=== PATIENT | female | born 1995 | race Caucasian/White ===

== ENCOUNTER 2017-03-15 18:16 | Emergency (ER) | payer OTHER ==
[~2017-03-15] VITALS: Ht 170.2 cm; Wt 100.2 kg
[~2017-03-15 18:16] MED LIST: DOCU-131 PO; FERR325T18 PO; HYDR-3240 PO; IBUP-1222 PO; MELA5TAB19 PO; PREN1TAB60 PO
[2017-03-15 18:17] VITALS: BP 155/99
[2017-03-15] MEDS ORDERED: PROPARACAINE OPHTH 0.5%, 15ML EACHEYE ONE (18:30)
[2017-03-15] MEDS ORDERED: FLUORESCEIN OPHTHALMIC 1 MG STRIP EACHEYE ONE (18:30)
[2017-03-15] MEDS ORDERED: FLUORESCEIN OPHTHALMIC 1 MG STRIP ONE (19:22)
[2017-03-15] MEDS ORDERED: PROPARACAINE OPHTH 0.5%, 15ML ONE (19:22)
== END 2017-03-15 20:51 | disposition home or self-care (01) ==
LOC: ED 19:24
DX: H57.11 Ocular pain, right eye (principal)
CPT/HCPCS: 99283

== ENCOUNTER → 2019-08-27 | Outpatient (CLI) | payer OTHER ==
[~2019-08-27] MED LIST changes: +MELA5TAB14 PO; -MELA5TAB19 PO
== END | disposition home or self-care (01) ==
LOC: LAB 03:15
PROVIDERS: ATTEND Family Medicine
DX: Z11.59 Encounter for screening for other viral diseases (principal)
CPT/HCPCS: 36415; 86787

== ENCOUNTER 2020-12-24 17:02 | Emergency (ER) | payer OTHER ==
[~2020-12-24] VITALS: Ht 170.2 cm; Wt 99.2 kg
[~2020-12-24 17:02] MED LIST changes: +HYDR-2214 PO; -HYDR-3240 PO
[2020-12-24 18:59] VITALS: BP 128/83
--- NOTE | 2020-12-24 18:59 | NUR ---
FIRST ENCOUNTER WITH PATIENT. PATIENT SITTING IN STRETCHER STATES SHE FEELS "HOT." TEMP 102.7. DENIES ANY NEEDS AT THIS TIME. WAITING ON XRAY RESULTS. BED IN LOW POSITION. CALL WALKER IN REACH. VSS. WILL CONTINUE TO MONITOR.
[2020-12-24] MEDS ORDERED: CEFTRIAXONE 1,000 MG IM ONE (19:00)
[2020-12-24] MEDS ORDERED: CEFAZOLIN 1,000 MG ONE (19:06)
[2020-12-24] MEDS ORDERED: ACETAMINOPHEN 500 MG TABLET ONE (19:06)
[2020-12-24] MEDS ORDERED: ACETAMINOPHEN 500 MG TABLET PO ONE (19:30)
--- NOTE | 2020-12-24 19:39 | NUR ---
Patient given discharge instructions and they have confirmed that they understand the instructions. Patient ambulatory with steady gait. NAD, all questions answered appropriately, denies additional needs at this time. No personal belongings left in room after discharge.
== END 2020-12-24 19:41 | disposition home or self-care (01) ==
LOC: ED 17:32
DX: U07.1 COVID-19 (principal); J12.82 Pneumonia due to coronavirus disease 2019
CPT/HCPCS: 71045; 96372; 99284; J0696; U0003; U0005

== ENCOUNTER 2020-12-27 13:23 | Inpatient (IN) | payer OTHER ==
[~2020-12-27] VITALS: Ht 170.2 cm; Wt 96.4 kg
--- NOTE | 2020-12-27 14:30 | NUR ---
TRANSPORT COORDINATOR: PT TO ROOM FROM [facility]
--- NOTE | 2020-12-27 14:49 | NUR ---
PT CAME IN CO COUGH, WEAKNESS, LOSS OF APPETITE AND FATIGUE. PT WAS SEEN IN ER ON SATURDAY AND DX WITH COVID AND SHE WAS SENT HOME WITH DOXYCYCLINE. PT REPORTS SHE HAS BEEN FEELING WORSE AND HER HOME PULSE OX WAS READING "85%". PT ROOM AIR SAT AFTER WALKING TO ROOM WAS 88%. PT PLACED ON 2 LITERS VIA NC. CONNECTED TO MONITORS.
--- NOTE | 2020-12-27 15:08 | NUR ---
LEANDRO Paris at bedside for initial eval/assessment
--- NOTE | 2020-12-27 15:13 | NUR ---
report taken from break RN, pt a&o, resps even and unlabored, vss, roxannan.
[2020-12-27] MEDS ORDERED: DEXAMETHASONE 4 MG/ML, 1ML ONE (15:20)
[2020-12-27] MEDS ORDERED: CEFTRIAXONE 1,000 MG IVPB SCH ×2 (15:30→17:30)
--- NOTE | 2020-12-27 15:45 | NUR ---
PIV placed, labs drawn, abx infusing. pt a&o, resps even and unlabored, nadn.
[2020-12-27 16:00] LABS: BASOPHILS % (AUTO) 0 % (0-1); EOSINOPHILS % (AUTO) 0 % (1-7); LYMPHOCYTES % (AUTO) 13 % (22-44); MEAN CORPUSCULAR HEMOGLOBIN 30.8 pg (27.0-34.8); MEAN CORPUSCULAR HGB CONC 34.6 g/dL (32.4-35.8); MEAN PLATELET VOLUME 8.8 fL (7.4-10.4); MONOCYTES % (AUTO) 4 % (2-9); NEUTROPHILS % (AUTO) 83 % (42-75); PLATELET COUNT 153 x10^3/uL (130-400); RED BLOOD COUNT 4.39 x10^6/uL (3.82-5.3); RED CELL DISTRIBUTION WIDTH 13.3 % (9.6-15.2)
[2020-12-27] MEDS ORDERED: DEXAMETHASONE 4 MG/ML, 5ML IVPush ONE (16:00)
[2020-12-27] MEDS ORDERED: CEFTRIAXONE 1,000 MG in DEXTROSE 5% 50 ML IVPB ONE (16:00)
[2020-12-27 16:07] LABS: ANION GAP 11 mmol/L (5-15); CALCIUM 8.8 mg/dL (8.5-10.1); CHLORIDE 103 mmol/L (98-107); CREATININE 0.72 mg/dL (0.55-1.02)
[2020-12-27] MEDS ORDERED: SODIUM CHLORIDE FLUSH 10ML SYR IVF ONE (16:30)
[2020-12-27] MEDS ORDERED: SODIUM CHLORIDE FLUSH 10ML SYR IVF PRN (16:30)
[2020-12-27] MEDS ORDERED: AZITHROMYCIN 500 MG in SODIUM CHLORIDE 0.9% 250 ML IVPB ONE (17:00)
--- NOTE | 2020-12-27 17:09 | NUR ---
report called to receiving RN Zahida in room 440, tech to transport patient to the floor at this time.
[2020-12-27] MEDS ORDERED: ONDANSETRON 2MG/ML, 2ML IVPush PRN (17:30)
[2020-12-27] MEDS ORDERED: ENOXAPARIN 40 MG/0.4 ML SQ SCH (17:30)
[2020-12-27] MEDS ORDERED: PHARMACY MAY ADJ FOR RENAL FX MC PRN (17:30)
[2020-12-27] MEDS ORDERED: AZITHROMYCIN 500 MG TABLET PO ONE (17:30)
[2020-12-27] MEDS: LORazepam 0.5MG TABLET PO PRN ×2 (17:35→21:34)
[2020-12-27] MEDS: ACETAMINOPHEN 325 MG TABLET PO PRN (17:35)
[2020-12-27] MEDS ORDERED: ONDANSETRON ODT 4 MG ONE (17:48)
[2020-12-27] MEDS ORDERED: ONDANSETRON 2MG/ML, 2ML ONE (17:49)
[2020-12-27] MEDS ORDERED: SODIUM CHLORIDE 0.9% 500 ML IV SCH ×2 (18:00)
[2020-12-27] MEDS ORDERED: REMDESIVIR IVPB ONE (18:30)
[2020-12-27] MEDS ORDERED: SODIUM CHLORIDE 0.9% IVPB ONE (18:30)
[2020-12-27] MEDS ORDERED: REMDESIVIR 100 MG in SODIUM CHLORIDE 0.9% 230 ML IVPB ONE (18:30)
[2020-12-27] MEDS: AZITHROMYCIN 500 MG TABLET PO SCH (18:34)
[2020-12-27 18:38] LABS: HCT (SEDRATE) 37.1 % (34.6-47.8)
[2020-12-27 19:54] VITALS: BP 114/74
[2020-12-27] MEDS: ASCORBIC ACID 500 MG TABLET PO SCH (20:01)
[2020-12-27] MEDS ORDERED: ALBUTEROL HFA 90 MCG/SPRAY INH PRN (21:00)
[2020-12-27 21:20] LABS: ALBUMIN 2.8 g/dL (3.4-5.0)
[2020-12-27 21:39] LABS: BILIRUBIN, DIRECT 0.3 mg/dL (0.1-0.2); BILIRUBIN,INDIRECT 0.3 mg/dL (0.0-2.0); BILIRUBIN,TOTAL 0.6 mg/dL (0.2-1.0); C-REACTIVE PROTEIN, QUANT 7.5 mg/dL (0.02-0.49); TOTAL PROTEIN 7.5 g/dL (6.4-8.2)
[2020-12-28 02:00] VITALS: BP 108/72
[2020-12-28 03:24] LABS: ALANINE AMINOTRANSFERASE 112 U/L (12-78); ALBUMIN 2.7 g/dL (3.4-5.0); ANION GAP 10 mmol/L (5-15); CALCIUM 8.5 mg/dL (8.5-10.1); CHLORIDE 107 mmol/L (98-107)
[2020-12-28 03:27] LABS: ALKALINE PHOSPHATASE 73 U/L (45-117); BILIRUBIN,TOTAL 0.5 mg/dL (0.2-1.0); TOTAL PROTEIN 7.6 g/dL (6.4-8.2)
[2020-12-28] MEDS: GUAIFENESIN/DM 200-20MG, 10ML UDC PO PRN ×2 (04:42→04:44)
[2020-12-28] MEDS: ACETAMINOPHEN 325 MG TABLET PO PRN (04:44)
[2020-12-28 08:10] VITALS: BP 109/48
[2020-12-28] MEDS: ASCORBIC ACID 500 MG TABLET PO SCH ×2 (09:57→21:14)
[2020-12-28] MEDS: ZINC SULFATE 220 MG CAPSULE PO SCH (09:57)
[2020-12-28] MEDS: DEXAMETHASONE 4 MG/ML, 1ML IVPush SCH (09:58)
[2020-12-28 12:03] VITALS: BP 103/66
[2020-12-28] MEDS: ENOXAPARIN 40 MG/0.4 ML SQ SCH (17:16)
[2020-12-28] MEDS: CEFTRIAXONE 1,000 MG in DEXTROSE 5% 50 ML IVPB SCH (17:16)
[2020-12-28] MEDS ORDERED: CEFTRIAXONE 1,000 MG IVPB SCH (18:30)
[2020-12-28] MEDS: AZITHROMYCIN 500 MG TABLET PO SCH (18:54)
[2020-12-28] MEDS: REMDESIVIR 100 MG in SODIUM CHLORIDE 0.9% 250 ML IVPB SCH (18:54)
[2020-12-28 18:58] VITALS: BP 106/66
[2020-12-28] MEDS: LORazepam 0.5MG TABLET PO PRN (21:15)
[2020-12-29 01:00] VITALS: BP 110/71
[2020-12-29 05:03] LABS: ANION GAP 7 mmol/L (5-15); CALCIUM 8.7 mg/dL (8.5-10.1); CHLORIDE 109 mmol/L (98-107); CREATININE 0.61 mg/dL (0.55-1.02)
[2020-12-29 05:04] LABS: ALANINE AMINOTRANSFERASE 88 U/L (12-78); ALBUMIN 2.6 g/dL (3.4-5.0)
[2020-12-29 05:06] LABS: ALKALINE PHOSPHATASE 62 U/L (45-117); BILIRUBIN,TOTAL 0.5 mg/dL (0.2-1.0); TOTAL PROTEIN 7.2 g/dL (6.4-8.2)
[2020-12-29 08:05] VITALS: BP 106/69
[2020-12-29] MEDS: DEXAMETHASONE 4 MG/ML, 1ML IVPush SCH (09:30)
[2020-12-29] MEDS: ASCORBIC ACID 500 MG TABLET PO SCH ×2 (09:30→21:01)
[2020-12-29] MEDS: ZINC SULFATE 220 MG CAPSULE PO SCH (09:30)
[2020-12-29] MEDS: GUAIFENESIN/DM 200-20MG, 10ML UDC PO PRN ×3 (09:37→21:17)
[2020-12-29 13:59] VITALS: BP 101/66
[2020-12-29] MEDS: ENOXAPARIN 40 MG/0.4 ML SQ SCH (17:08)
[2020-12-29] MEDS: CEFTRIAXONE 1,000 MG in DEXTROSE 5% 50 ML IVPB SCH (17:08)
[2020-12-29] MEDS: REMDESIVIR 100 MG in SODIUM CHLORIDE 0.9% 250 ML IVPB SCH (18:01)
[2020-12-29] MEDS: AZITHROMYCIN 500 MG TABLET PO SCH (18:03)
[2020-12-29 21:00] VITALS: BP 109/71
[2020-12-29] MEDS: LORazepam 0.5MG TABLET PO PRN (21:17)
[2020-12-30 01:25] VITALS: BP 101/61
[2020-12-30] MEDS: LORazepam 0.5MG TABLET PO PRN ×2 (02:40→21:16)
[2020-12-30 07:44] LABS: MEAN CORPUSCULAR HEMOGLOBIN 30.1 pg (27.0-34.8); MEAN CORPUSCULAR HGB CONC 34.2 g/dL (32.4-35.8); MEAN PLATELET VOLUME 7.8 fL (7.4-10.4); PLATELET COUNT 299 x10^3/uL (130-400); RED CELL DISTRIBUTION WIDTH 13.4 % (9.6-15.2)
[2020-12-30 07:57] LABS: ALBUMIN 2.9 g/dL (3.4-5.0); ANION GAP 8 mmol/L (5-15); CALCIUM 8.8 mg/dL (8.5-10.1); CHLORIDE 107 mmol/L (98-107); D-DIMER 0.48 ug/mlFEU (0.00-0.52); INTERNATIONAL NORMALIZED RATIO 0.98 (0.93-1.1); PROTHROMBIN TIME 10.5 Seconds (9.6-11.5)
[2020-12-30 08:02] LABS: ALANINE AMINOTRANSFERASE 81 U/L (12-78); ALKALINE PHOSPHATASE 66 U/L (45-117); BILIRUBIN,TOTAL 0.5 mg/dL (0.2-1.0); CREATININE 0.65 mg/dL (0.55-1.02); TOTAL PROTEIN 7.7 g/dL (6.4-8.2)
[2020-12-30 08:10] LABS: HCT (SEDRATE) 40.6 % (34.6-47.8)
[2020-12-30 08:11] LABS: BAND#(MANUAL) 0.32 x10^3/uL; BANDS%(MANUAL) 3 % (0-7); LYMPHS% (MANUAL) 28 % (22-44); METAMYELOCYTES# (MANUAL) 0.21 x10^3/uL (0-0); METAMYELOCYTES% (MANUAL) 2 % (0-1); MONOS#(MANUAL) 0.64 x10^3/uL (0.3-2.7); MONOS% (MANUAL) 6 % (2-9); SEG#(MANUAL) 6.53 x10^3/uL (1.8-6.8); SEGS% (MANUAL) 61 % (42-75)
[2020-12-30 08:12] LABS: <PLATELET ESTIMATE> ADEQUATE; <PLT MORPHOLOGY> NORMAL PLT MORPH; <RBC MORPHOLOGY> NORMAL
[2020-12-30 08:37] VITALS: BP 99/64
[2020-12-30] MEDS: ASCORBIC ACID 500 MG TABLET PO SCH ×2 (08:52→21:16)
[2020-12-30] MEDS: DEXAMETHASONE 4 MG/ML, 1ML IVPush SCH (08:53)
[2020-12-30] MEDS: ZINC SULFATE 220 MG CAPSULE PO SCH (08:53)
[2020-12-30] MEDS: GUAIFENESIN/DM 200-20MG, 10ML UDC PO PRN ×4 (09:58→23:06)
[2020-12-30 12:03] VITALS: BP 101/63
[2020-12-30] MEDS: ENOXAPARIN 40 MG/0.4 ML SQ SCH (16:07)
[2020-12-30] MEDS: CEFTRIAXONE 1,000 MG in DEXTROSE 5% 50 ML IVPB SCH (16:07)
[2020-12-30] MEDS: REMDESIVIR 100 MG in SODIUM CHLORIDE 0.9% 250 ML IVPB SCH (18:36)
[2020-12-30 19:49] VITALS: BP 105/71
[2020-12-31 03:39] VITALS: BP 100/66
[2020-12-31] MEDS: GUAIFENESIN/DM 200-20MG, 10ML UDC PO PRN ×4 (03:39→21:29)
[2020-12-31 05:23] LABS: MEAN CORPUSCULAR HEMOGLOBIN 30.8 pg (27.0-34.8); MEAN CORPUSCULAR HGB CONC 34.8 g/dL (32.4-35.8); MEAN PLATELET VOLUME 7.6 fL (7.4-10.4); PLATELET COUNT 312 x10^3/uL (130-400); RED BLOOD COUNT 4.36 x10^6/uL (3.82-5.3); RED CELL DISTRIBUTION WIDTH 13.5 % (9.6-15.2)
[2020-12-31 05:32] LABS: HCT (SEDRATE) 38.2 % (34.6-47.8)
[2020-12-31 05:34] LABS: INTERNATIONAL NORMALIZED RATIO 0.98 (0.93-1.1); PROTHROMBIN TIME 10.5 Seconds (9.6-11.5)
[2020-12-31 05:38] LABS: ALBUMIN 2.7 g/dL (3.4-5.0); ANION GAP 4 mmol/L (5-15); CALCIUM 8.4 mg/dL (8.5-10.1); CHLORIDE 108 mmol/L (98-107)
[2020-12-31 05:44] LABS: ALANINE AMINOTRANSFERASE 85 U/L (12-78); ALKALINE PHOSPHATASE 63 U/L (45-117); BILIRUBIN,TOTAL 0.4 mg/dL (0.2-1.0); CREATININE 0.72 mg/dL (0.55-1.02); TOTAL PROTEIN 7.3 g/dL (6.4-8.2)
[2020-12-31 06:23] LABS: BAND#(MANUAL) 0.09 x10^3/uL; BANDS%(MANUAL) 1 % (0-7); LYMPH#(MANUAL) 1.94 x10^3/uL (1-3.4); LYMPHS% (MANUAL) 22 % (22-44); METAMYELOCYTES# (MANUAL) 0.18 x10^3/uL (0-0); METAMYELOCYTES% (MANUAL) 2 % (0-1); MONOS#(MANUAL) 0.88 x10^3/uL (0.3-2.7); MONOS% (MANUAL) 10 % (2-9); REACTIVE LYMPHS # (MANUAL) 0.18 x10^3/uL (0-0); REACTIVE LYMPHS % (MANUAL) 2 % (0-0)
[2020-12-31 06:24] LABS: MYELOCYTES# (MANUAL) 0.09 x10^3/uL (0-0); MYELOCYTES% (MANUAL) 1 % (0-0)
[2020-12-31 06:25] LABS: <PLATELET ESTIMATE> ADEQUATE; <PLT MORPHOLOGY> NORMAL PLT MORPH; SEG#(MANUAL) 5.46 x10^3/uL (1.8-6.8); SEGS% (MANUAL) 62 % (42-75)
[2020-12-31 07:10] LABS: <RBC MORPHOLOGY> NORMAL
[2020-12-31] MEDS: DEXAMETHASONE 4 MG/ML, 1ML IVPush SCH (08:31)
[2020-12-31] MEDS: ASCORBIC ACID 500 MG TABLET PO SCH ×2 (08:31→21:46)
[2020-12-31] MEDS: ZINC SULFATE 220 MG CAPSULE PO SCH (08:31)
[2020-12-31 09:34] LABS: ALANINE AMINOTRANSFERASE 89 U/L (12-78); ALBUMIN 2.9 g/dL (3.4-5.0); ANION GAP 10 mmol/L (5-15); CALCIUM 8.8 mg/dL (8.5-10.1); CHLORIDE 105 mmol/L (98-107); CREATININE 0.82 mg/dL (0.55-1.02)
[2020-12-31 09:36] LABS: ALKALINE PHOSPHATASE 67 U/L (45-117); BILIRUBIN,TOTAL 0.6 mg/dL (0.2-1.0); TOTAL PROTEIN 7.7 g/dL (6.4-8.2)
[2020-12-31 10:00] VITALS: BP 112/73
[2020-12-31 12:56] VITALS: BP 96/60
[2020-12-31] MEDS: ENOXAPARIN 40 MG/0.4 ML SQ SCH (16:43)
[2020-12-31] MEDS: REMDESIVIR 100 MG in SODIUM CHLORIDE 0.9% 250 ML IVPB SCH (18:18)
[2020-12-31 20:40] VITALS: BP 104/68
[2020-12-31] MEDS: LORazepam 0.5MG TABLET PO PRN (21:29)
[2021-01-01 03:06] VITALS: BP 100/61
[2021-01-01 03:44] LABS: MEAN CORPUSCULAR HEMOGLOBIN 30.3 pg (27.0-34.8); MEAN CORPUSCULAR HGB CONC 34.6 g/dL (32.4-35.8); MEAN PLATELET VOLUME 7.6 fL (7.4-10.4); PLATELET COUNT 357 x10^3/uL (130-400); RED BLOOD COUNT 4.47 x10^6/uL (3.82-5.3); RED CELL DISTRIBUTION WIDTH 13.2 % (9.6-15.2)
[2021-01-01 03:55] LABS: ALANINE AMINOTRANSFERASE 77 U/L (12-78); ALBUMIN 2.7 g/dL (3.4-5.0); ANION GAP 10 mmol/L (5-15); CALCIUM 8.2 mg/dL (8.5-10.1); CHLORIDE 105 mmol/L (98-107); CREATININE 0.65 mg/dL (0.55-1.02)
[2021-01-01 03:57] LABS: ALKALINE PHOSPHATASE 62 U/L (45-117); BILIRUBIN,TOTAL 0.4 mg/dL (0.2-1.0); TOTAL PROTEIN 7.5 g/dL (6.4-8.2)
[2021-01-01 04:54] LABS: BAND#(MANUAL) 0.22 x10^3/uL; BANDS%(MANUAL) 2 % (0-7); LYMPH#(MANUAL) 3.25 x10^3/uL (1-3.4); LYMPHS% (MANUAL) 29 % (22-44); METAMYELOCYTES# (MANUAL) 0.22 x10^3/uL (0-0); METAMYELOCYTES% (MANUAL) 2 % (0-1); MONOS#(MANUAL) 1.01 x10^3/uL (0.3-2.7); MONOS% (MANUAL) 9 % (2-9); SEGS% (MANUAL) 58 % (42-75)
[2021-01-01 04:55] LABS: <PLATELET ESTIMATE> ADEQUATE; <PLT MORPHOLOGY> NORMAL PLT MORPH; <RBC MORPHOLOGY> NORMAL
[2021-01-01 09:58] VITALS: BP 99/65
[2021-01-01] MEDS: GUAIFENESIN/DM 200-20MG, 10ML UDC PO PRN ×3 (10:02→20:23)
[2021-01-01] MEDS: ASCORBIC ACID 500 MG TABLET PO SCH ×2 (10:03→20:23)
[2021-01-01] MEDS: DEXAMETHASONE 4 MG/ML, 1ML IVPush SCH (10:03)
[2021-01-01] MEDS: ZINC SULFATE 220 MG CAPSULE PO SCH (10:03)
[2021-01-01 14:31] VITALS: BP 108/68
[2021-01-01] MEDS: ENOXAPARIN 40 MG/0.4 ML SQ SCH (17:33)
[2021-01-01 19:19] VITALS: BP 104/68
[2021-01-01] MEDS: LORazepam 0.5MG TABLET PO PRN (20:23)
[2021-01-02 03:15] VITALS: BP 107/73
[2021-01-02] MEDS: GUAIFENESIN/DM 200-20MG, 10ML UDC PO PRN ×2 (06:09→11:33)
[2021-01-02 06:58] LABS: MEAN CORPUSCULAR HEMOGLOBIN 30.9 pg (27.0-34.8); MEAN CORPUSCULAR HGB CONC 35.2 g/dL (32.4-35.8); MEAN PLATELET VOLUME 7.8 fL (7.4-10.4); PLATELET COUNT 396 x10^3/uL (130-400); RED BLOOD COUNT 4.57 x10^6/uL (3.82-5.3); RED CELL DISTRIBUTION WIDTH 13.3 % (9.6-15.2)
[2021-01-02 07:14] LABS: CHLORIDE 104 mmol/L (98-107)
[2021-01-02 07:22] LABS: ALANINE AMINOTRANSFERASE 68 U/L (12-78); ALBUMIN 2.9 g/dL (3.4-5.0); ALKALINE PHOSPHATASE 67 U/L (45-117); ANION GAP 10 mmol/L (5-15); BILIRUBIN,TOTAL 0.3 mg/dL (0.2-1.0); C-REACTIVE PROTEIN, QUANT 0.26 mg/dL (0.02-0.49); CALCIUM 8.3 mg/dL (8.5-10.1); CREATININE 0.67 mg/dL (0.55-1.02); TOTAL PROTEIN 7.6 g/dL (6.4-8.2)
[2021-01-02 08:03] LABS: <PLATELET ESTIMATE> ADEQUATE; <PLT MORPHOLOGY> NORMAL PLT MORPH; <RBC MORPHOLOGY> NORMAL; BAND#(MANUAL) 0.58 x10^3/uL; BANDS%(MANUAL) 4 % (0-7); LYMPH#(MANUAL) 2.88 x10^3/uL (1-3.4); LYMPHS% (MANUAL) 20 % (22-44); METAMYELOCYTES# (MANUAL) 0.29 x10^3/uL (0-0); METAMYELOCYTES% (MANUAL) 2 % (0-1); MONOS#(MANUAL) 0.58 x10^3/uL (0.3-2.7); MONOS% (MANUAL) 4 % (2-9); MYELOCYTES# (MANUAL) 0.29 x10^3/uL (0-0); MYELOCYTES% (MANUAL) 2 % (0-0); SEG#(MANUAL) 9.79 x10^3/uL (1.8-6.8); SEGS% (MANUAL) 68 % (42-75)
[2021-01-02 08:21] LABS: D-DIMER 0.27 ug/mlFEU (0.00-0.52); INTERNATIONAL NORMALIZED RATIO 0.97 (0.93-1.1); PROTHROMBIN TIME 10.4 Seconds (9.6-11.5)
[2021-01-02 08:27] VITALS: BP 143/99
[2021-01-02] MEDS: DEXAMETHASONE 4 MG/ML, 1ML IVPush SCH (08:53)
[2021-01-02] MEDS: ASCORBIC ACID 500 MG TABLET PO SCH (08:53)
[2021-01-02] MEDS: ZINC SULFATE 220 MG CAPSULE PO SCH (08:54)
[2021-01-02 08:59] VITALS: BP 102/64
[2021-01-02 13:28] VITALS: BP 111/70
[2021-01-02] MEDS ORDERED: ASCO500T9 PO (14:01)
[2021-01-02] MEDS ORDERED: ZINC220C8 PO (14:01)
[2021-01-02] MEDS ORDERED: CHOL10003 PO (14:01)
[2021-01-02] MEDS ORDERED: PRED20TA PO (14:12)
[2021-01-02] MEDS: ENOXAPARIN 40 MG/0.4 ML SQ SCH (17:21)
== END 2021-01-02 18:46 | disposition home or self-care (01) | DRG 177 ==
LOC: ED 13:53 → SUATTDRO 17:06 → 4NW 17:14 → ED 22:06 → 4NW 22:06 → 4EST 12-29 12:35
PROVIDERS: ADMIT Hospitalist; ATTEND Hospitalist
PROC: XW033E5 Introduction of Remdesivir Anti-infective into Peripheral Vein, Percutaneous Approach, New Technology Group 5 (ICD-10-PCS; principal; 2020-12-28)
DX: U07.1 COVID-19 (principal); J96.01 Acute respiratory failure with hypoxia; J12.82 Pneumonia due to coronavirus disease 2019; E87.3 Alkalosis; N93.9 Abnormal uterine and vaginal bleeding, unspecified; Z79.899 Other long term (current) drug therapy; Z79.891 Long term (current) use of opiate analgesic; Z83.3 Family history of diabetes mellitus
CPT/HCPCS: 36415; 36600; 71045; 80048; 80053; 80076; 82040; 82728; 82803; 83615; 83735; 83880; 84100; 84145; 84702; 85025; 85379; 85384; 85610; 85651; 86140; 93005; 96374; 96375; G0378; J0696; J1100; J1650; J2405; J7040; J7050